=== PATIENT | female | born 1970 | race African-American/Black ===

== ENCOUNTER 2024-12-20 04:24 | Emergency (ER) | payer OTHER, MEDICAID ==
[~2024-12-20] VITALS: Ht 170.2 cm; Wt 70.0 kg
[2024-12-20 04:57] VITALS: BP 127/91; PULSE 85; RESP 18; TEMP 36.9; O2SAT 100
[2024-12-20 06:02] VITALS: TEMP 98.5
[2024-12-20] MEDS: ACETAMINOPHEN 325MG TABLET PO ONE (06:02)
[2024-12-20] MEDS ORDERED: TOPUD PO (07:20)
== END 2024-12-20 10:26 | disposition home or self-care (01) ==
LOC: ER 04:24
DX: S09.8XXA Other specified injuries of head, initial encounter (principal); J45.909 Unspecified asthma, uncomplicated; M79.645 Pain in left finger(s); M54.2 Cervicalgia; M25.521 Pain in right elbow; V49.9XXA Car occupant (driver) (passenger) injured in unspecified traffic accident, initial encounter; Y93.89 Activity, other specified; Y92.410 Unspecified street and highway as the place of occurrence of the external cause; Y99.8 Other external cause status
CPT/HCPCS: 73080; 73130; 73562; 99284

== ENCOUNTER 2025-05-24 20:12 | Emergency (ER) | payer MEDICAID ==
[~2025-05-24] VITALS: Ht 170.2 cm; Wt 82.0 kg
[~2025-05-24 20:12] MED LIST: TOPUD PO
[2025-05-24 20:14] VITALS: O2SAT 99
[2025-05-24] MEDS: FAMOTIDINE 20MG TABLET PO SCH (21:36)
[2025-05-24] MEDS: DEXAMETHASONE 4MG TABLET PO ONE (21:37)
[2025-05-24 21:42] LABS: BASOPHILS % 0.4 % (0.0-2.0); EOSINOPHILS % 7.9 % (0.0-5.0); HEMATOCRIT. 37.2 % (36.0-48.0); HEMOGLOBIN. 11.9 g/dL (12.0-16.0); LYMPHOCYTES % 38.0 % (20.0-50.0); MEAN PLATELET VOLUME 9.5 fl (7.4-10.4); MONOCYTES % 10.8 % (2.0-8.0); NEUTROPHILS % 42.9 % (40.0-76.0); PLATELET 193 x1000/uL (130-400); RED BLOOD CELL COUNT 4.05 mill/uL (4.2-5.4); RED CELL DISTRIBUTION WIDTH 14.7 % (11.6-14.6)
[2025-05-24] MEDS: AMPICILLIN SOD/SULBACTAM NA 1.5 G in SODIUM CHLORIDE 0.9% 50 ML IV SCH (21:48)
[2025-05-24 21:54] LABS: CREATININE 1.1 mg/dL (0.6-1.0)
[2025-05-24 21:55] LABS: ETHANOL BLOOD 162 mg/dL (<10); UREA NITROGEN BLOOD 11 mg/dL (9-23)
[2025-05-24] MEDS: KETOROLAC 15MG/ML VIAL IV ONE (23:17)
[2025-05-24] MEDS: IOHEXOL-300 100 ML BOTTLE ONE (23:34)
[2025-05-25] MEDS ORDERED: AMOX1TAB16 MT (00:06)
[2025-05-25] MEDS ORDERED: P20 MT (00:06)
[2025-05-25 00:36] VITALS: BP 137/86; PULSE 84; RESP 18; TEMP 36.6; O2SAT 100
== END 2025-05-25 00:40 | disposition home or self-care (01) ==
LOC: ER 20:12 → CMPBEDREQ 05-25 09:37
DX: L03.213 Periorbital cellulitis (principal); F10.20 Alcohol dependence, uncomplicated; Z87.891 Personal history of nicotine dependence; Y90.6 Blood alcohol level of 120-199 mg/100 ml
CPT/HCPCS: 80048; 80320; 85025; 87040; 36415; 70481; 96365; 96375; 99291; Q9967; J8540; J0295; J1885; G0480

== ENCOUNTER 2025-06-09 13:07 | Emergency (ER) | payer MEDICAID ==
[~2025-06-09] VITALS: Ht 165.1 cm; Wt 80.0 kg
[~2025-06-09 13:07] MED LIST changes: +AMOX1TAB16 MT; +P20 MT
[2025-06-09 13:08] VITALS: TEMP 98.4; O2SAT 99
[2025-06-09] MEDS ORDERED: DIPHENHYDRAMINE 50MG CAPSULE PO ONE (13:30)
[2025-06-09] MEDS ORDERED: PREDNISONE 20MG TABLET PO ONE (13:30)
[2025-06-09] MEDS ORDERED: DIPH25CA83 MT (13:31)
[2025-06-09] MEDS ORDERED: FAMO-135 MT (13:31)
[2025-06-09] MEDS ORDERED: P50 MT (13:31)
[2025-06-09] MEDS ORDERED: DIPHENHYDRAMINE 25MG CAPSULE PO SCH (13:45)
[2025-06-09] MEDS: METHYLPREDNISOLONE SOD SUCC 125MG/2ML (ACT-O-VIAL) IM ONE (13:47)
[2025-06-09] MEDS: FAMOTIDINE 20MG TABLET PO ONE (13:47)
[2025-06-09 13:53] VITALS: BP 104/70; PULSE 94; RESP 16; O2SAT 100
== END 2025-06-09 13:54 | disposition home or self-care (01) ==
LOC: ER 13:07
DX: T78.40XA Allergy, unspecified, initial encounter (principal); L30.9 Dermatitis, unspecified; R60.0 Localized edema; X58.XXXA Exposure to other specified factors, initial encounter
CPT/HCPCS: 99283; 96372; J2919; Q0163